=== PATIENT | male | born 1935 | race Caucasian/White ===

== ENCOUNTER → 2016-12-14 | Outpatient (CLI) | payer MEDICARE | END | disposition home or self-care (01) | LOC: CVU 07:57 | PROVIDERS: ATTEND Internal Medicine Cardiovascular Disease | DX: I48.91 Unspecified atrial fibrillation (principal); I63.9 Cerebral infarction, unspecified; I08.1 Rheumatic disorders of both mitral and tricuspid valves; J44.9 Chronic obstructive pulmonary disease, unspecified; I09.89 Other specified rheumatic heart diseases; I27.2 Other secondary pulmonary hypertension; Z86.73 Personal history of transient ischemic attack (TIA), and cerebral infarction without residual deficits | CPT/HCPCS: 93306; 93880 ==

== ENCOUNTER → 2016-12-20 | Outpatient (CLI) | payer MEDICARE ==
[2016-12-20 10:27] LABS: ASPARTATE AMINO TRANSFERASE 28 U/L (15-37); BLOOD UREA NITROGEN 29 mg/dL (7-18)
== END | disposition home or self-care (01) ==
LOC: LAB 10:02
PROVIDERS: ATTEND Internal Medicine Cardiovascular Disease
DX: I63.9 Cerebral infarction, unspecified (principal); R60.9 Edema, unspecified
CPT/HCPCS: 36415; 80053; 80061

== ENCOUNTER → 2017-01-30 | Outpatient (CLI) | payer MEDICARE ==
[2017-01-30 09:31] LABS: ASPARTATE AMINO TRANSFERASE 27 U/L (15-37); BLOOD UREA NITROGEN 40 mg/dL (7-18)
== END | disposition home or self-care (01) ==
LOC: LAB 09:07
PROVIDERS: ATTEND Physician Assistant
DX: E78.2 Mixed hyperlipidemia (principal); I42.9 Cardiomyopathy, unspecified; I48.2 Chronic atrial fibrillation; I63.9 Cerebral infarction, unspecified; R60.9 Edema, unspecified
CPT/HCPCS: 36415; 80053

== ENCOUNTER 2017-04-12 08:37 | Inpatient (IN) | payer MEDICARE ==
[~2017-04-12] VITALS: Ht 180.3 cm; Wt 82.9 kg
[2017-04-12 09:23] VITALS: BP 112/74
[2017-04-12] MEDS ORDERED: ASPIRIN 325 MG TABLET EC PO ONE (09:30)
[2017-04-12 09:58] LABS: HEMATOCRIT 36.3 % (39.2-51.8); HEMOGLOBIN 11.7 g/dL (13.7-18.0); WHITE BLOOD COUNT 6.6 x10^3/uL (3.4-10)
[2017-04-12] MEDS ORDERED: BUDE10.2 INH (10:01)
[2017-04-12] MEDS ORDERED: QUIN20TA17 PO (10:01)
[2017-04-12] MEDS ORDERED: WARF5TAB7 PO (10:01)
[2017-04-12] MEDS ORDERED: TAMS0.4C2 PO (10:01)
[2017-04-12] MEDS ORDERED: ASPI-496 PO (10:01)
[2017-04-12] MEDS ORDERED: ALBU8.5H8 INH (10:01)
[2017-04-12] MEDS ORDERED: EZET1TAB64 PO (10:01)
[2017-04-12] MEDS ORDERED: BISO5TAB2 PO (10:01)
[2017-04-12] MEDS ORDERED: FURO20TA3 PO (10:01)
[2017-04-12] MEDS ORDERED: ALBU6.7H INH (10:01)
[2017-04-12 10:31] LABS: ASPARTATE AMINO TRANSFERASE 26 U/L (15-37); BLOOD UREA NITROGEN 31 mg/dL (7-18)
[2017-04-12] MEDS ORDERED: MIDAZOLAM 1 MG/ML, 5ML ONE (10:54)
[2017-04-12] MEDS ORDERED: BIVALIRUDIN 250 MG ONE (10:55)
[2017-04-12] MEDS ORDERED: FENTANYL PF 100 MCG/2ML ONE (10:55)
[2017-04-12] MEDS ORDERED: TICAGRELOR 90 MG TABLET ONE (10:55)
[2017-04-12] MEDS ORDERED: HEPARIN 1,000 UNITS/ML, 10ML ONE (10:55)
[2017-04-12] MEDS ORDERED: LIDOCAINE 2%, 20ML ONE (10:55)
[2017-04-12] MEDS ORDERED: NITROGLYCERIN 5 MG/ML, 10ML ONE (10:55)
[2017-04-12] MEDS ORDERED: VERAPAMIL 2.5 MG/ML, 2ML ONE (10:55)
[2017-04-12] MEDS ORDERED: DIPHENHYDRAMINE 50 MG/ML, 1ML ONE (11:09)
[2017-04-12 11:50] LABS: DIFF TOTAL CELLS COUNTED 100 CELL DIFF
[2017-04-12 11:51] LABS: VERIFY COUNTS? YES
[2017-04-12 11:53] LABS: ANISOCYTOSIS 1+; OVALOCYTES 1+; POLYCHROMASIA 1+; SCHISTOCYTES 1+
[2017-04-12] MEDS: SODIUM CHLORIDE 0.9% 1,000 ML IV SCH ×2 (11:55→19:48)
[2017-04-12] MEDS ORDERED: ALBUTEROL SULFATE INH SCH (12:00)
[2017-04-12] MEDS: ALBUTEROL SULFATE 2.5 MG/3 ML NPPB SCH ×2 (12:00→14:48)
[2017-04-12] MEDS ORDERED: BIVALIRUDIN 250 MG in DEXTROSE 5% 50 ML IV SCH (12:00)
[2017-04-12 13:43] VITALS: BP 132/82
[2017-04-12] MEDS ORDERED: WARFARIN 5 MG TABLET PO-COUM ONE (18:00)
[2017-04-12] MEDS ORDERED: DIGOXIN 0.25 MG/ML, 2ML ONE (18:17)
[2017-04-12] MEDS ORDERED: FILTER 0.22 MICRON IV ONE (18:30)
[2017-04-12] MEDS ORDERED: AMIODARONE 150 MG in DEXTROSE 5% 100 ML IV ONE (18:30)
[2017-04-12] MEDS ORDERED: DIGOXIN 0.25 MG/ML, 2ML IVPush ONE (18:30)
[2017-04-12 18:39] LABS: ABG COLLECTION SITE LEFT RADIAL; COLLATERAL CIRCULATION TESTING NORMAL
[2017-04-12] MEDS ORDERED: FUROSEMIDE 20 MG/2 ML IV ONE (19:00)
[2017-04-12] MEDS ORDERED: ALBUTEROL/IPRATROPIUM 2.5MG/0.5MG, 3 ML HHN SCH (19:00)
[2017-04-12 19:30] VITALS: BP 147/85
[2017-04-12] MEDS ORDERED: ALBUTEROL SULFATE 2.5 MG/3 ML NPPB SCH (20:00)
[2017-04-12] MEDS: EZETIMIBE 10 MG TABLET PO SCH (20:12)
[2017-04-12] MEDS: FLUTICASONE/VILANTEROL 200-25MCG/INH INH SCH (20:12)
[2017-04-12] MEDS: METOPROLOL SUCCINATE 25 MG TAB.ER.24H PO SCH (20:12)
[2017-04-12] MEDS: ZOLPIDEM 5MG TABLET PO SCH (20:13)
[2017-04-12] MEDS ORDERED: SIMVASTATIN 40 MG TABLET PO SCH (21:00)
[2017-04-13] MEDS: SODIUM CHLORIDE 0.9% 1,000 ML IV SCH (01:10)
[2017-04-13 02:53] VITALS: BP 145/84
[2017-04-13 05:17] LABS: BLOOD UREA NITROGEN 35 mg/dL (7-18)
[2017-04-13 06:41] VITALS: BP 154/77
[2017-04-13] MEDS ORDERED: ALBUTEROL/IPRATROPIUM 2.5MG/0.5MG, 3 ML HHN SCH (07:00)
[2017-04-13 07:39] VITALS: BP 146/77
[2017-04-13] MEDS: FUROSEMIDE 20 MG TABLET PO SCH (07:45)
[2017-04-13] MEDS: QUINAPRIL 20MG TABLET PO SCH (07:45)
[2017-04-13] MEDS: TAMSULOSIN 0.4 MG CAP.ER.24H PO SCH (07:45)
[2017-04-13] MEDS: TICAGRELOR 90 MG TABLET PO SCH ×2 (07:45→20:53)
[2017-04-13] MEDS: ASPIRIN 81 MG TABLET EC PO SCH (07:45)
[2017-04-13] MEDS: FLUTICASONE/VILANTEROL 200-25MCG/INH INH SCH ×2 (07:55→07:58)
[2017-04-13] MEDS ORDERED: WARFARIN 5 MG TABLET PO-COUM SCH (09:00)
[2017-04-13] MEDS ORDERED: TEMPLATE NON-FORMULARY MED. (Bisoprolol Fumarate 5 MG) PO SCH (09:00)
[2017-04-13] MEDS: ALBUTEROL SULFATE 2.5 MG/3 ML NPPB SCH ×3 (11:00→21:25)
[2017-04-13 14:39] VITALS: BP 110/67
[2017-04-13] MEDS ORDERED: WARFARIN 5 MG TABLET PO-COUM ONE (18:00)
[2017-04-13 18:47] VITALS: BP 150/77
[2017-04-13] MEDS: ZOLPIDEM 5MG TABLET PO SCH (19:13)
[2017-04-13] MEDS: METOPROLOL SUCCINATE 25 MG TAB.ER.24H PO SCH (20:52)
[2017-04-13] MEDS: SYMBICORT INH SCH (20:53)
[2017-04-13] MEDS: EZETIMIBE 10 MG TABLET PO SCH (20:53)
[2017-04-13] MEDS ORDERED: ATORVASTATIN 40 MG TABLET PO SCH (21:00)
[2017-04-14 01:40] VITALS: BP 110/66
[2017-04-14] MEDS: METOPROLOL SUCCINATE 25 MG TAB.ER.24H PO SCH (06:19)
[2017-04-14 07:44] VITALS: BP_SYST 150; BP_SYST 154; BP_DIAS 83; BP_DIAS 97
[2017-04-14] MEDS: TICAGRELOR 90 MG TABLET PO SCH (08:47)
[2017-04-14] MEDS: FUROSEMIDE 20 MG TABLET PO SCH (08:47)
[2017-04-14] MEDS: ASPIRIN 81 MG TABLET EC PO SCH (08:47)
[2017-04-14] MEDS: QUINAPRIL 20MG TABLET PO SCH (08:47)
[2017-04-14] MEDS: SYMBICORT INH SCH (08:48)
[2017-04-14] MEDS: TAMSULOSIN 0.4 MG CAP.ER.24H PO SCH (08:48)
[2017-04-14] MEDS ORDERED: ATOR40TA78 PO (10:06)
[2017-04-14] MEDS ORDERED: TICA90TA PO (10:06)
[2017-04-14] MEDS: ALBUTEROL SULFATE 2.5 MG/3 ML NPPB SCH ×2 (10:53→11:00)
[2017-04-14] MEDS ORDERED: FLU VACC QS2017-18 (36MOS+) UP/PF 0.5 ML IM-VACC ONE (11:00)
== END 2017-04-14 13:31 | disposition home or self-care (01) | DRG 248 ==
LOC: CACL 08:37 → ORIP 11:55 → 5SO 12:20 → OBSVTOIN 04-13 10:14
PROVIDERS: ADMIT Internal Medicine Cardiovascular Disease; ATTEND Internal Medicine Cardiovascular Disease
PROC: 02703DZ Dilation of Coronary Artery, One Artery with Intraluminal Device, Percutaneous Approach (ICD-10-PCS; principal; 2017-04-12)
PROC: 4A023N7 Measurement of Cardiac Sampling and Pressure, Left Heart, Percutaneous Approach (ICD-10-PCS; 2017-04-12)
PROC: B2111ZZ Fluoroscopy of Multiple Coronary Arteries using Low Osmolar Contrast (ICD-10-PCS; 2017-04-12)
PROC: B2151ZZ Fluoroscopy of Left Heart using Low Osmolar Contrast (ICD-10-PCS; 2017-04-12)
DX: I25.10 Atherosclerotic heart disease of native coronary artery without angina pectoris (principal); I50.23 Acute on chronic systolic (congestive) heart failure; D68.59 Other primary thrombophilia; I42.0 Dilated cardiomyopathy; Z99.81 Dependence on supplemental oxygen; N18.3 Chronic kidney disease, stage 3 (moderate); J44.9 Chronic obstructive pulmonary disease, unspecified; I13.0 Hypertensive heart and chronic kidney disease with heart failure and stage 1 through stage 4 chronic kidney disease, or unspecified chronic kidney disease; I35.0 Nonrheumatic aortic (valve) stenosis; E78.5 Hyperlipidemia, unspecified; I48.2 Chronic atrial fibrillation; N40.0 Benign prostatic hyperplasia without lower urinary tract symptoms; R09.02 Hypoxemia; Z86.73 Personal history of transient ischemic attack (TIA), and cerebral infarction without residual deficits; Z87.891 Personal history of nicotine dependence; Z88.8 Allergy status to other drugs, medicaments and biological substances; Z91.013 Allergy to seafood; R41.0 Disorientation, unspecified; I35.8 Other nonrheumatic aortic valve disorders
CPT/HCPCS: 36415; 36600; 71010; 80048; 80053; 82040; 82803; 82962; 85018; 85025; 85610; 85730; 92928; 93458; 94640; 99156; 99157; C1769; C1876; C1894; G0378; J0583; J1644; J2250; J3010; J3490; J7613; J7620; C1725; C1887; J1160; J1200; J1940; Q9967

== ENCOUNTER 2017-04-15 11:11 | Inpatient (IN) | payer MEDICARE ==
[~2017-04-15] VITALS: Ht 182.9 cm; Wt 67.9 kg
[~2017-04-15 11:11] MED LIST: ALBU6.7H INH; ALBU8.5H8 INH; ASPI-496 PO; ATOR40TA78 PO; BISO5TAB2 PO; BUDE10.2 INH; EZET1TAB64 PO; FURO20TA3 PO; QUIN20TA17 PO; TAMS0.4C2 PO; TICA90TA PO; WARF5TAB7 PO
[2017-04-15 11:55] LABS: HEMATOCRIT 35.4 % (39.2-51.8); HEMOGLOBIN 11.6 g/dL (13.7-18.0); WHITE BLOOD COUNT 9.1 x10^3/uL (3.4-10)
[2017-04-15 12:07] LABS: BLOOD UREA NITROGEN 31 mg/dL (7-18)
[2017-04-15 12:23] LABS: IS PT STATUS REG ER OR PRE ER? YES
[2017-04-15] MEDS ORDERED: FUROSEMIDE 40 MG/4 ML IV ONE (13:00)
[2017-04-15 14:45] VITALS: BP 136/79
[2017-04-15] MEDS ORDERED: ONDANSETRON 2MG/ML, 2ML IVPush PRN (16:00)
[2017-04-15] MEDS ORDERED: HEPARIN 5,000 UNITS/ML, 1ML SQ SCH (16:00)
[2017-04-15] MEDS ORDERED: ACETAMINOPHEN 325 MG TABLET PO PRN (16:00)
[2017-04-15] MEDS ORDERED: hydrALAzine 20 MG/ML, 1ML IVPush PRN (16:00)
[2017-04-15] MEDS ORDERED: OXYcodone IR 5MG TABLET PO PRN (16:00)
[2017-04-15] MEDS ORDERED: morphine SULFATE 10 MG/ML, 1ML IVPush PRN (16:00)
[2017-04-15] MEDS: FUROSEMIDE 40 MG/4 ML IV SCH (17:13)
[2017-04-15] MEDS: WARFARIN 7.5 MG TABLET PO-COUM SCH (17:17)
[2017-04-15 21:25] VITALS: BP 120/73
[2017-04-15] MEDS: TICAGRELOR 90 MG TABLET PO SCH (21:32)
[2017-04-15] MEDS: ATORVASTATIN 40 MG TABLET PO SCH (21:32)
[2017-04-15 22:40] LABS: IS PT STATUS REG ER OR PRE ER? NO
[2017-04-16 01:08] VITALS: BP 133/88
[2017-04-16 03:18] LABS: ABG COLLECTION SITE RIGHT BRACHIAL
[2017-04-16 05:17] LABS: BLOOD UREA NITROGEN 31 mg/dL (7-18)
[2017-04-16 05:23] LABS: ASPARTATE AMINO TRANSFERASE 22 U/L (15-37)
[2017-04-16 05:32] LABS: IS PT STATUS REG ER OR PRE ER? NO
[2017-04-16] MEDS ORDERED: HALOPERIDOL 5 MG/ML IV ONE ×3 (06:00→22:00)
[2017-04-16 06:04] LABS: HEMATOCRIT 35.8 % (39.2-51.8); HEMOGLOBIN 11.7 g/dL (13.7-18.0); WHITE BLOOD COUNT 9.4 x10^3/uL (3.4-10)
[2017-04-16] MEDS: TAMSULOSIN 0.4 MG CAP.ER.24H PO SCH (08:42)
[2017-04-16] MEDS: QUINAPRIL 20MG TABLET PO SCH (08:42)
[2017-04-16] MEDS: POTASSIUM CHLORIDE 20 MEQ TAB.ER.PRT PO SCH (08:42)
[2017-04-16] MEDS: SPIRONOLACTONE 25 MG TABLET PO SCH (08:42)
[2017-04-16] MEDS: TICAGRELOR 90 MG TABLET PO SCH ×2 (08:42→20:26)
[2017-04-16] MEDS: ASPIRIN 81 MG TABLET EC PO SCH (08:42)
[2017-04-16] MEDS: FUROSEMIDE 40 MG/4 ML IV SCH ×2 (08:43→16:50)
[2017-04-16] MEDS: TEMPLATE NON-FORMULARY MED. (Bisoprolol Fumarate 5 MG) HOMEMEDPO SCH (08:43)
[2017-04-16 08:48] VITALS: BP 150/91
[2017-04-16] MEDS: FLUTICASONE/VILANTEROL 200-25MCG/INH INH SCH (10:03)
[2017-04-16 13:51] VITALS: BP 102/58
[2017-04-16] MEDS: WARFARIN 7.5 MG TABLET PO-COUM SCH (16:50)
[2017-04-16] MEDS: NEUTRA PHOS K 250 MG TABLET PO SCH ×2 (18:26→20:26)
[2017-04-16] MEDS: ATORVASTATIN 40 MG TABLET PO SCH (20:26)
[2017-04-16] MEDS ORDERED: HALOPERIDOL 5 MG/ML ONE (21:07)
[2017-04-17 00:43] VITALS: BP 166/89
[2017-04-17] MEDS ORDERED: LORazepam 2 MG/ML, 1ML IV PRN (01:00)
[2017-04-17 01:22] LABS: HEMATOCRIT 33.9 % (39.2-51.8); HEMOGLOBIN 11.2 g/dL (13.7-18.0)
[2017-04-17 01:30] LABS: BLOOD UREA NITROGEN 37 mg/dL (7-18)
[2017-04-17 01:49] LABS: IS PT STATUS REG ER OR PRE ER? NO
[2017-04-17 02:00] VITALS: BP 126/75
[2017-04-17 08:30] VITALS: BP 141/97
[2017-04-17] MEDS: TAMSULOSIN 0.4 MG CAP.ER.24H PO SCH (09:00)
[2017-04-17] MEDS: POTASSIUM CHLORIDE 20 MEQ TAB.ER.PRT PO SCH (11:03)
[2017-04-17] MEDS: NEUTRA PHOS K 250 MG TABLET PO SCH ×6 (11:03→19:29)
[2017-04-17] MEDS: QUINAPRIL 20MG TABLET PO SCH (11:04)
[2017-04-17] MEDS: SPIRONOLACTONE 25 MG TABLET PO SCH (11:04)
[2017-04-17] MEDS: TICAGRELOR 90 MG TABLET PO SCH ×2 (11:04→19:29)
[2017-04-17] MEDS: FLUTICASONE/VILANTEROL 200-25MCG/INH INH SCH (11:04)
[2017-04-17] MEDS: ASPIRIN 81 MG TABLET EC PO SCH (11:04)
[2017-04-17] MEDS: TEMPLATE NON-FORMULARY MED. (Bisoprolol Fumarate 5 MG) HOMEMEDPO SCH (11:05)
[2017-04-17] MEDS: FUROSEMIDE 40 MG/4 ML IV SCH ×2 (11:05→17:04)
[2017-04-17 14:49] VITALS: BP 135/77
[2017-04-17] MEDS ORDERED: ALBUTEROL/IPRATROPIUM 2.5MG/0.5MG, 3 ML ONE (14:51)
[2017-04-17] MEDS: ALBUTEROL/IPRATROPIUM 2.5MG/0.5MG, 3 ML NPPB SCH ×2 (15:00→19:41)
[2017-04-17] MEDS ORDERED: ALBUTEROL/IPRATROPIUM 2.5MG/0.5MG, 3 ML NPPB PRN (15:30)
[2017-04-17] MEDS: WARFARIN 7.5 MG TABLET PO-COUM SCH (17:04)
[2017-04-17 19:09] VITALS: BP 104/51
[2017-04-17] MEDS: ATORVASTATIN 40 MG TABLET PO SCH (19:29)
[2017-04-18 02:00] VITALS: BP 122/49
[2017-04-18 06:05] LABS: ASPARTATE AMINO TRANSFERASE 23 U/L (15-37); BLOOD UREA NITROGEN 37 mg/dL (7-18)
[2017-04-18 06:07] LABS: HEMATOCRIT 32.9 % (39.2-51.8); HEMOGLOBIN 10.9 g/dL (13.7-18.0); WHITE BLOOD COUNT 9.8 x10^3/uL (3.4-10)
[2017-04-18 08:21] VITALS: BP 100/57
[2017-04-18] MEDS: FUROSEMIDE 40 MG/4 ML IV SCH ×2 (08:37→16:33)
[2017-04-18] MEDS: ASPIRIN 81 MG TABLET EC PO SCH (08:38)
[2017-04-18] MEDS: NEUTRA PHOS K 250 MG TABLET PO SCH ×4 (08:38→20:34)
[2017-04-18] MEDS: TICAGRELOR 90 MG TABLET PO SCH ×2 (08:38→20:34)
[2017-04-18] MEDS: SPIRONOLACTONE 25 MG TABLET PO SCH (08:38)
[2017-04-18] MEDS: TAMSULOSIN 0.4 MG CAP.ER.24H PO SCH (08:38)
[2017-04-18] MEDS: QUINAPRIL 20MG TABLET PO SCH (08:38)
[2017-04-18] MEDS: POTASSIUM CHLORIDE 20 MEQ TAB.ER.PRT PO SCH (08:38)
[2017-04-18] MEDS: TEMPLATE NON-FORMULARY MED. (Bisoprolol Fumarate 5 MG) HOMEMEDPO SCH (08:42)
[2017-04-18] MEDS: FLUTICASONE/VILANTEROL 200-25MCG/INH INH SCH (08:51)
[2017-04-18] MEDS: ALBUTEROL/IPRATROPIUM 2.5MG/0.5MG, 3 ML NPPB SCH ×3 (10:51→22:00)
[2017-04-18 13:36] VITALS: BP 107/61
[2017-04-18] MEDS: WARFARIN 7.5 MG TABLET PO-COUM SCH (18:32)
[2017-04-18 19:50] VITALS: BP 110/62
[2017-04-18] MEDS: ATORVASTATIN 40 MG TABLET PO SCH (20:34)
[2017-04-19 00:48] VITALS: BP 104/57
[2017-04-19 06:06] LABS: BLOOD UREA NITROGEN 44 mg/dL (7-18)
[2017-04-19] MEDS: ALBUTEROL/IPRATROPIUM 2.5MG/0.5MG, 3 ML NPPB SCH ×4 (07:42→19:10)
[2017-04-19 07:55] VITALS: BP 117/76
[2017-04-19] MEDS: TEMPLATE NON-FORMULARY MED. (Bisoprolol Fumarate 5 MG) HOMEMEDPO SCH (09:00)
[2017-04-19] MEDS: FUROSEMIDE 40 MG/4 ML IV SCH ×2 (09:18→16:52)
[2017-04-19] MEDS: ASPIRIN 81 MG TABLET EC PO SCH (10:48)
[2017-04-19] MEDS: NEUTRA PHOS K 250 MG TABLET PO SCH ×3 (10:49→19:51)
[2017-04-19] MEDS: TICAGRELOR 90 MG TABLET PO SCH ×2 (10:49→19:51)
[2017-04-19] MEDS: QUINAPRIL 20MG TABLET PO SCH (10:49)
[2017-04-19] MEDS: SPIRONOLACTONE 25 MG TABLET PO SCH (10:50)
[2017-04-19] MEDS: POTASSIUM CHLORIDE 20 MEQ TAB.ER.PRT PO SCH (10:50)
[2017-04-19] MEDS: TAMSULOSIN 0.4 MG CAP.ER.24H PO SCH (10:51)
[2017-04-19] MEDS: FLUTICASONE/VILANTEROL 200-25MCG/INH INH SCH (10:58)
[2017-04-19 13:00] VITALS: BP 98/57
[2017-04-19] MEDS: WARFARIN 7.5 MG TABLET PO-COUM SCH (18:15)
[2017-04-19 18:54] VITALS: BP 111/64
[2017-04-19] MEDS: TEMAZEPAM 15 MG CAPSULE PO PRN (19:51)
[2017-04-19] MEDS: ATORVASTATIN 40 MG TABLET PO SCH (19:51)
[2017-04-20 01:02] VITALS: BP 102/66
[2017-04-20 05:56] LABS: BLOOD UREA NITROGEN 46 mg/dL (7-18)
[2017-04-20] MEDS: ALBUTEROL/IPRATROPIUM 2.5MG/0.5MG, 3 ML NPPB SCH ×4 (07:31→20:10)
[2017-04-20 07:32] VITALS: BP 97/59
[2017-04-20] MEDS: TEMPLATE NON-FORMULARY MED. (Bisoprolol Fumarate 5 MG) HOMEMEDPO SCH (08:50)
[2017-04-20] MEDS: FUROSEMIDE 40 MG/4 ML IV SCH ×2 (08:50→17:48)
[2017-04-20] MEDS: FLUTICASONE/VILANTEROL 200-25MCG/INH INH SCH (08:50)
[2017-04-20] MEDS: QUINAPRIL 20MG TABLET PO SCH (08:51)
[2017-04-20] MEDS: NEUTRA PHOS K 250 MG TABLET PO SCH ×3 (08:51→20:51)
[2017-04-20] MEDS: TAMSULOSIN 0.4 MG CAP.ER.24H PO SCH (08:51)
[2017-04-20] MEDS: TICAGRELOR 90 MG TABLET PO SCH ×2 (08:51→20:51)
[2017-04-20] MEDS: ASPIRIN 81 MG TABLET EC PO SCH (08:52)
[2017-04-20] MEDS: SPIRONOLACTONE 25 MG TABLET PO SCH (08:52)
[2017-04-20] MEDS: POTASSIUM CHLORIDE 20 MEQ TAB.ER.PRT PO SCH (08:52)
[2017-04-20 12:43] VITALS: BP 80/44
[2017-04-20] MEDS: WARFARIN 7.5 MG TABLET PO-COUM SCH (18:12)
[2017-04-20 20:43] VITALS: BP_SYST 120; BP_SYST 88; BP_DIAS 56; BP_DIAS 59
[2017-04-20] MEDS: ATORVASTATIN 40 MG TABLET PO SCH (20:51)
[2017-04-21 01:19] VITALS: BP 105/66
[2017-04-21] MEDS: TEMAZEPAM 15 MG CAPSULE PO PRN ×2 (01:23→23:06)
[2017-04-21 05:35] LABS: BLOOD UREA NITROGEN 55 mg/dL (7-18)
[2017-04-21] MEDS: ALBUTEROL/IPRATROPIUM 2.5MG/0.5MG, 3 ML NPPB SCH ×4 (06:55→20:08)
[2017-04-21 07:09] VITALS: BP 85/60
[2017-04-21] MEDS: QUINAPRIL 20MG TABLET PO SCH ×2 (07:58→09:00)
[2017-04-21] MEDS: POTASSIUM CHLORIDE 20 MEQ TAB.ER.PRT PO SCH (07:58)
[2017-04-21] MEDS: FUROSEMIDE 40 MG/4 ML IV SCH (07:58)
[2017-04-21] MEDS: SPIRONOLACTONE 25 MG TABLET PO SCH (07:58)
[2017-04-21] MEDS: TAMSULOSIN 0.4 MG CAP.ER.24H PO SCH (07:58)
[2017-04-21] MEDS: FLUTICASONE/VILANTEROL 200-25MCG/INH INH SCH (07:58)
[2017-04-21] MEDS: TICAGRELOR 90 MG TABLET PO SCH ×2 (07:58→22:00)
[2017-04-21] MEDS: ASPIRIN 81 MG TABLET EC PO SCH (07:58)
[2017-04-21] MEDS: NEUTRA PHOS K 250 MG TABLET PO SCH (07:58)
[2017-04-21] MEDS: TEMPLATE NON-FORMULARY MED. (Bisoprolol Fumarate 5 MG) HOMEMEDPO SCH (07:58)
[2017-04-21] MEDS: MAGNESIUM OXIDE 400 MG TABLET PO SCH ×2 (09:00→21:00)
[2017-04-21] MEDS ORDERED: FUROSEMIDE 40 MG/4 ML IV SCH (09:00)
[2017-04-21] MEDS ORDERED: SPIRONOLACTONE 25 MG TABLET PO SCH (09:00)
[2017-04-21] MEDS: FUROSEMIDE 40 MG TABLET PO SCH (10:30)
[2017-04-21 13:59] VITALS: BP 84/55
[2017-04-21] MEDS: WARFARIN 7.5 MG TABLET PO-COUM SCH (17:39)
[2017-04-21 19:10] VITALS: BP 73/45
[2017-04-21] MEDS ORDERED: SODIUM CHLORIDE 0.9%, 250ML IVBOLUS ONE (20:00)
[2017-04-21 20:51] VITALS: BP 94/57
[2017-04-21 21:24] VITALS: BP 117/62
[2017-04-21] MEDS ORDERED: LORazepam 2 MG/ML, 1ML IV PRN (21:30)
[2017-04-21] MEDS ORDERED: OXYcodone IR 5MG TABLET PO PRN (21:30)
[2017-04-21] MEDS ORDERED: ACETAMINOPHEN 325 MG TABLET PO PRN (21:30)
[2017-04-21] MEDS ORDERED: ONDANSETRON 2MG/ML, 2ML IVPush PRN (21:30)
[2017-04-21] MEDS ORDERED: morphine SULFATE 10 MG/ML, 1ML IVPush PRN (21:30)
[2017-04-21] MEDS ORDERED: ALBUTEROL/IPRATROPIUM 2.5MG/0.5MG, 3 ML NPPB PRN (21:30)
[2017-04-21] MEDS ORDERED: hydrALAzine 20 MG/ML, 1ML IVPush PRN (21:30)
[2017-04-21] MEDS: ATORVASTATIN 40 MG TABLET PO SCH (22:00)
[2017-04-22 00:43] VITALS: BP 89/55
[2017-04-22 01:07] VITALS: BP 137/81
[2017-04-22 02:00] VITALS: BP 99/58
[2017-04-22 04:58] LABS: BLOOD UREA NITROGEN 57 mg/dL (7-18)
[2017-04-22] MEDS: ALBUTEROL/IPRATROPIUM 2.5MG/0.5MG, 3 ML NPPB SCH ×4 (06:09→18:50)
[2017-04-22] MEDS: FLUTICASONE/VILANTEROL 200-25MCG/INH INH SCH (08:19)
[2017-04-22] MEDS: TAMSULOSIN 0.4 MG CAP.ER.24H PO SCH (08:20)
[2017-04-22] MEDS: TICAGRELOR 90 MG TABLET PO SCH ×2 (08:20→20:25)
[2017-04-22] MEDS: FUROSEMIDE 40 MG TABLET PO SCH (08:20)
[2017-04-22] MEDS: MAGNESIUM OXIDE 400 MG TABLET PO SCH ×2 (08:20→20:25)
[2017-04-22] MEDS: POTASSIUM CHLORIDE 20 MEQ TAB.ER.PRT PO SCH (08:20)
[2017-04-22] MEDS: ASPIRIN 81 MG TABLET EC PO SCH (08:20)
[2017-04-22] MEDS: TEMPLATE NON-FORMULARY MED. (Bisoprolol Fumarate 5 MG) HOMEMEDPO SCH (08:23)
[2017-04-22] MEDS: SPIRONOLACTONE 25 MG TABLET PO SCH (08:23)
[2017-04-22] MEDS: QUINAPRIL 20MG TABLET PO SCH (08:23)
[2017-04-22 08:25] VITALS: BP 85/44
[2017-04-22 13:54] VITALS: BP 95/59
[2017-04-22] MEDS: WARFARIN 7.5 MG TABLET PO-COUM SCH (17:41)
[2017-04-22 19:28] VITALS: BP 97/55
[2017-04-22] MEDS: ATORVASTATIN 40 MG TABLET PO SCH (20:24)
[2017-04-23 01:24] VITALS: BP 108/66
[2017-04-23 07:23] VITALS: BP 110/66
[2017-04-23] MEDS: ALBUTEROL/IPRATROPIUM 2.5MG/0.5MG, 3 ML NPPB SCH ×4 (07:43→18:52)
[2017-04-23] MEDS: TEMPLATE NON-FORMULARY MED. (Bisoprolol Fumarate 5 MG) HOMEMEDPO SCH (08:11)
[2017-04-23] MEDS: MAGNESIUM OXIDE 400 MG TABLET PO SCH ×2 (08:14→20:22)
[2017-04-23] MEDS: ASPIRIN 81 MG TABLET EC PO SCH (08:14)
[2017-04-23] MEDS: TICAGRELOR 90 MG TABLET PO SCH ×2 (08:14→20:22)
[2017-04-23] MEDS: SPIRONOLACTONE 25 MG TABLET PO SCH (08:15)
[2017-04-23] MEDS: QUINAPRIL 20MG TABLET PO SCH (08:15)
[2017-04-23] MEDS: FLUTICASONE/VILANTEROL 200-25MCG/INH INH SCH (08:15)
[2017-04-23] MEDS: FUROSEMIDE 40 MG TABLET PO SCH (08:15)
[2017-04-23] MEDS: TAMSULOSIN 0.4 MG CAP.ER.24H PO SCH (08:15)
[2017-04-23 08:27] VITALS: BP 90/55
[2017-04-23] MEDS: POTASSIUM CHLORIDE 20 MEQ TAB.ER.PRT PO SCH (09:00)
[2017-04-23] MEDS ORDERED: ALPR0.254 PO (11:08)
[2017-04-23] MEDS ORDERED: MAGN400T26 PO (11:08)
[2017-04-23] MEDS ORDERED: IPRA3AMP NPPB (11:08)
[2017-04-23] MEDS ORDERED: POTA20TA6 PO (11:08)
[2017-04-23] MEDS ORDERED: FURO40TA6 PO (11:08)
[2017-04-23] MEDS ORDERED: QUIN5TAB13 PO (11:08)
[2017-04-23] MEDS ORDERED: SPIR25TA PO (11:08)
[2017-04-23] MEDS ORDERED: WARF7.5T PO-COUM (11:08)
[2017-04-23] MEDS ORDERED: TRAM50TA2 PO (11:08)
[2017-04-23 14:48] VITALS: BP 109/55
[2017-04-23] MEDS: WARFARIN 7.5 MG TABLET PO-COUM SCH (19:27)
[2017-04-23 19:37] VITALS: BP 103/62
[2017-04-23] MEDS: ATORVASTATIN 40 MG TABLET PO SCH (20:22)
[2017-04-24 02:30] VITALS: BP 116/69
[2017-04-24] MEDS: ALBUTEROL/IPRATROPIUM 2.5MG/0.5MG, 3 ML NPPB SCH ×4 (07:00→19:46)
[2017-04-24 07:44] VITALS: BP 119/71
[2017-04-24] MEDS: FLUTICASONE/VILANTEROL 200-25MCG/INH INH SCH (08:07)
[2017-04-24] MEDS: TEMPLATE NON-FORMULARY MED. (Bisoprolol Fumarate 5 MG) HOMEMEDPO SCH (08:07)
[2017-04-24] MEDS: MAGNESIUM OXIDE 400 MG TABLET PO SCH ×2 (08:08→20:49)
[2017-04-24] MEDS: POTASSIUM CHLORIDE 20 MEQ TAB.ER.PRT PO SCH (08:08)
[2017-04-24] MEDS: TAMSULOSIN 0.4 MG CAP.ER.24H PO SCH (08:08)
[2017-04-24] MEDS: TICAGRELOR 90 MG TABLET PO SCH ×2 (08:08→20:49)
[2017-04-24] MEDS: SPIRONOLACTONE 25 MG TABLET PO SCH (08:08)
[2017-04-24] MEDS: ASPIRIN 81 MG TABLET EC PO SCH (08:08)
[2017-04-24] MEDS: FUROSEMIDE 40 MG TABLET PO SCH (08:08)
[2017-04-24] MEDS: QUINAPRIL 20MG TABLET PO SCH (08:09)
[2017-04-24 13:37] VITALS: BP_SYST 76; BP_SYST 88; BP_DIAS 44; BP_DIAS 46
[2017-04-24 17:45] VITALS: BP 92/62
[2017-04-24] MEDS: WARFARIN 7.5 MG TABLET PO-COUM SCH (17:47)
[2017-04-24 20:07] VITALS: BP 110/54
[2017-04-24] MEDS: ATORVASTATIN 40 MG TABLET PO SCH (20:49)
[2017-04-25 00:47] VITALS: BP 107/58
[2017-04-25] MEDS: ALBUTEROL/IPRATROPIUM 2.5MG/0.5MG, 3 ML NPPB SCH ×4 (07:00→19:50)
[2017-04-25] MEDS: FUROSEMIDE 40 MG TABLET PO SCH (08:06)
[2017-04-25] MEDS: MAGNESIUM OXIDE 400 MG TABLET PO SCH ×2 (08:07→20:23)
[2017-04-25] MEDS: QUINAPRIL 5MG TABLET PO SCH (08:07)
[2017-04-25] MEDS: TEMPLATE NON-FORMULARY MED. (Bisoprolol Fumarate 5 MG) HOMEMEDPO SCH (08:07)
[2017-04-25] MEDS: TAMSULOSIN 0.4 MG CAP.ER.24H PO SCH (08:07)
[2017-04-25] MEDS: TICAGRELOR 90 MG TABLET PO SCH ×2 (08:07→20:22)
[2017-04-25] MEDS: FLUTICASONE/VILANTEROL 200-25MCG/INH INH SCH (08:07)
[2017-04-25] MEDS: ASPIRIN 81 MG TABLET EC PO SCH (08:07)
[2017-04-25] MEDS: POTASSIUM CHLORIDE 20 MEQ TAB.ER.PRT PO SCH (08:07)
[2017-04-25] MEDS: SPIRONOLACTONE 25 MG TABLET PO SCH (08:07)
[2017-04-25 08:16] VITALS: BP 97/71
[2017-04-25] MEDS ORDERED: QUINAPRIL 20MG TABLET PO SCH (09:00)
[2017-04-25 14:29] VITALS: BP 112/71
[2017-04-25] MEDS: WARFARIN 7.5 MG TABLET PO-COUM SCH (17:35)
[2017-04-25 18:55] VITALS: BP 101/61
[2017-04-25] MEDS: ATORVASTATIN 40 MG TABLET PO SCH (20:22)
[2017-04-25] MEDS: TEMAZEPAM 15 MG CAPSULE PO PRN (21:37)
[2017-04-26 02:24] VITALS: BP 116/69
[2017-04-26] MEDS: ALBUTEROL/IPRATROPIUM 2.5MG/0.5MG, 3 ML NPPB SCH ×2 (07:45→11:10)
[2017-04-26 08:14] VITALS: BP 113/70
[2017-04-26] MEDS: FLUTICASONE/VILANTEROL 200-25MCG/INH INH SCH (08:20)
[2017-04-26] MEDS: POTASSIUM CHLORIDE 20 MEQ TAB.ER.PRT PO SCH (08:21)
[2017-04-26] MEDS: QUINAPRIL 5MG TABLET PO SCH (08:21)
[2017-04-26] MEDS: MAGNESIUM OXIDE 400 MG TABLET PO SCH (08:21)
[2017-04-26] MEDS: TICAGRELOR 90 MG TABLET PO SCH (08:21)
[2017-04-26] MEDS: TAMSULOSIN 0.4 MG CAP.ER.24H PO SCH (08:21)
[2017-04-26] MEDS: SPIRONOLACTONE 25 MG TABLET PO SCH (08:21)
[2017-04-26] MEDS: FUROSEMIDE 40 MG TABLET PO SCH (08:22)
[2017-04-26] MEDS: ASPIRIN 81 MG TABLET EC PO SCH (08:22)
[2017-04-26] MEDS: TEMPLATE NON-FORMULARY MED. (Bisoprolol Fumarate 5 MG) HOMEMEDPO SCH (08:24)
[2017-04-26 13:23] VITALS: BP 97/55
== END 2017-04-26 16:04 | disposition home or self-care (01) | DRG 291 ==
LOC: ED 12:40 → 5SO 12:43 → ED 12:59 → 5SO 19:50
PROVIDERS: ADMIT Hospitalist; ATTEND Internal Medicine
DX: I13.0 Hypertensive heart and chronic kidney disease with heart failure and stage 1 through stage 4 chronic kidney disease, or unspecified chronic kidney disease (principal); E43 Unspecified severe protein-calorie malnutrition; G93.40 Encephalopathy, unspecified; J96.11 Chronic respiratory failure with hypoxia; I27.20 Pulmonary hypertension, unspecified; D68.69 Other thrombophilia; I42.9 Cardiomyopathy, unspecified; I50.41 Acute combined systolic (congestive) and diastolic (congestive) heart failure; N18.3 Chronic kidney disease, stage 3 (moderate); E83.39 Other disorders of phosphorus metabolism; Z99.81 Dependence on supplemental oxygen; D63.8 Anemia in other chronic diseases classified elsewhere; E78.5 Hyperlipidemia, unspecified; F03.90 Unspecified dementia, unspecified severity, without behavioral disturbance, psychotic disturbance, mood disturbance, and anxiety; I25.10 Atherosclerotic heart disease of native coronary artery without angina pectoris; I35.0 Nonrheumatic aortic (valve) stenosis; I37.1 Nonrheumatic pulmonary valve insufficiency; I48.2 Chronic atrial fibrillation; I71.4 Abdominal aortic aneurysm, without rupture; J44.9 Chronic obstructive pulmonary disease, unspecified; N40.0 Benign prostatic hyperplasia without lower urinary tract symptoms; Z51.5 Encounter for palliative care; Z66 Do not resuscitate; Z79.01 Long term (current) use of anticoagulants; Z86.73 Personal history of transient ischemic attack (TIA), and cerebral infarction without residual deficits; Z87.891 Personal history of nicotine dependence; Z91.81 History of falling; Z95.5 Presence of coronary angioplasty implant and graft; Z98.52 Vasectomy status; Z90.89 Acquired absence of other organs; Z79.82 Long term (current) use of aspirin; Z79.899 Other long term (current) drug therapy; Z88.6 Allergy status to analgesic agent; Z91.013 Allergy to seafood
CPT/HCPCS: 36415; 36600; 70450; 71010; 74022; 80048; 80053; 81001; 82040; 82803; 83735; 83880; 84100; 84484; 85025; 85379; 85610; 86480; 87040; 93005; 94640; 99285; J1940; J7620; J1630; J2060; J7050